=== PATIENT | female | born 1940 | race Caucasian/White ===

== ENCOUNTER → 2016-06-27 | Outpatient (CLI) | payer MEDICARE, BC ==
[2016-06-27 10:32] LABS: ABSOLUTE BASOPHILS # (AUTO) 0.1 10^3/uL (0.0-0.2); ABSOLUTE EOSINOPHILS # (AUTO) 0.7 10^3/uL (0.0-0.6); ABSOLUTE LYMPHOCYTES (AUTO) 2.9 10^3/uL (0.5-4.7); ABSOLUTE MONOCYTES (AUTO) 1.3 10^3/uL (0.1-1.4); ABSOLUTE NEUT (AUTO) 4.9 10^3/uL (1.7-8.2); BASOPHILS % (AUTO) 1.2 % (0-2); EOSINOPHILS % (AUTO) 6.7 % (0-6); HEMATOCRIT 29.9 % (36.0-47.0); HEMOGLOBIN 9.7 g/dL (12.0-15.5); HGB HCT DIFFERENCE -0.8; LYMPHOCYTES % (AUTO) 29.7 % (13-45); MEAN CORPUSCULAR HEMOGLOBIN 24.2 pg (27.0-33.4); MEAN CORPUSCULAR HGB CONC 32.6 g/dL (32.0-36.0); MEAN CORPUSCULAR VOLUME 74 fl (80-97); RED BLOOD COUNT 4.03 10^6/uL (3.72-5.28); RED CELL DISTRIBUTION WIDTH 16.6 % (11.5-14.0); SEGMENTED NEUTROPHILS % (AUTO) 49.4 % (42-78); WHITE BLOOD COUNT 9.8 10^3/uL (4.0-10.5)
[2016-06-27 10:52] LABS: ALANINE AMINOTRANSFERASE 49 U/L (9-52); ALBUMIN 4.2 g/dL (3.5-5.0); ALKALINE PHOSPHATASE 87 U/L (38-126); ANION GAP 16 (5-19); ASPARTATE AMINO TRANSFERASE 38 U/L (14-36); BILIRUBIN,DIRECT 0.2 mg/dL (0.0-0.4); BILIRUBIN,TOTAL 0.3 mg/dL (0.2-1.3); BLOOD UREA NITROGEN 20 mg/dL (7-20); CALCIUM 10.2 mg/dL (8.4-10.2); CARBON DIOXIDE 23 mmol/L (22-30); CHLORIDE 105 mmol/L (98-107); CHOLESTEROL 159.99 mg/dL (0-200); CREATININE RESULT 0.78 mg/dL (0.52-1.25); Direct HDL 62 mg/dL (>40); GLUCOSE 120 mg/dL (75-110); POTASSIUM 3.7 mmol/L (3.6-5.0); SODIUM 143.8 mmol/L (137-145); TOTAL PROTEIN 7.2 g/dL (6.3-8.2); TRIGLYCERIDES 137 mg/dL (<150)
[2016-06-27 11:04] LABS: DIRECT LDL 71 mg/dL (<100)
== END ==
LOC: OD 09:41
PROVIDERS: ATTEND Internal Medicine
DX: I10 Essential (primary) hypertension (principal); E78.5 Hyperlipidemia, unspecified; R53.82 Chronic fatigue, unspecified; R73.9 Hyperglycemia, unspecified; D64.9 Anemia, unspecified
CPT/HCPCS: 36415; 80053; 80061; 82728; 83036; 83525; 83540; 83550; 84443; 85025

== ENCOUNTER → 2016-12-27 | Outpatient (CLI) | payer MEDICARE, BC ==
--- NOTE | 2016-12-27 17:55 | XCELERA REPORT ---
[address] [address] Transthoracic Echocardiogram Report Name: ASIM CONTRERAS Age: 76 yrs Gender: Female : 1940 Patient Status: Outpatient Patient Location: Study Date: 12/27/2016 02:00 PM Height: 63 in Weight: 192 lb BSA: 1.9 m2 Procedure: A two-dimensional transthoracic echocardiogram with color flow and Doppler was performed. Poor doppler interogation. Reason For Study: MURMUR History: MURMUR. Ordering Physician: DOROTA SCHMIDT Performed By: Andrea Cotton Interpretation Summary The left ventricle is normal in size. There is normal left ventricular wall thickness. LV EF is > than 75% Left ventricular systolic function is normal. The left ventricular wall motion is normal. There is no thrombus. The left atrial size is normal. The right atrium is normal. There is no evidence of mitral valve prolapse. There is no mitral valve stenosis. There is a trace amount of mitral regurgitation There is no tricuspid stenosis. There is a trace amount of tricuspid regurgitation There is mild pulmonary hypertension by echo No AV jet velocity, but visually no .The increased AV jet velocity is due the LVEF > than 75%. There is no pericardial effusion. MMode/2D Measurements & Calculations RVDd: 2.5 cm LVIDd: 5.6 cm FS: 49.0 % Ao root diam: 3.2 cm IVSd: 1.0 cm LVIDs: 2.9 cm EDV(Teich): 154.9 ml LVPWd: 1.0 cm ESV(Teich): 31.4 ml Ao root area: 8.0 cm2 EF(Teich): 79.8 % Doppler Measurements & Calculations MV E max cherie: MV dec slope: Ao V2 max: LV V1 max P.3 cm/sec 241.4 cm/sec 13.0 mmHg MV A max cherie: 597.6 cm/sec2 Ao max PG: LV V1 max: 159.4 cm/sec MV dec time: 23.3 mmHg 180.4 cm/sec MV E/A: 0.88 0.23 sec PA V2 max: TR max cherie: 127.5 cm/sec 267.8 cm/sec PA max P.5 mmHgTR max P.7 mmHg Left Ventricle The left ventricle is normal in size. There is normal left ventricular wall thickness. LV EF is > than 75%. Left ventricular systolic function is normal. Doppler measurements suggest impaired left ventricular relaxation, which is associated with grade I/IV or mild diastolic dysfunction. The left ventricular wall motion is normal. There is no thrombus. Right Ventricle The right ventricle is normal in size and function. Atria The right atrium is normal. The left atrial size is normal. Mitral Valve There is no evidence of mitral valve prolapse. There is no vegetation seen on the mitral valve. There is no mitral valve stenosis. There is a trace amount of mitral regurgitation. Aortic Valve There is no aortic valvular vegetation. There is no aortic valve stenosis. There is trace LVOT obstruction. No AV jet velocity, but visually no .The increased AV jet velocity is due the LVEF > than 75%. No aortic regurgitation is present. Tricuspid Valve There is no tricuspid stenosis. There is a trace amount of tricuspid regurgitation. There is mild pulmonary hypertension by echo. RVSP is 399mm of Hg , with RA mean of 10. Pulmonic Valve There is no pulmonic valvular stenosis. There is no pulmonic valvular regurgitation. Great Vessels The aortic root is not well visualized but is probably normal size. Effusions There is no pericardial effusion. : DOROTA SCHMIDT > Aura Rivera
== END ==
LOC: SP 13:55
PROVIDERS: ATTEND Internal Medicine
DX: R01.1 Cardiac murmur, unspecified (principal)
CPT/HCPCS: 93306

== ENCOUNTER → 2017-01-22 | Outpatient (CLI) | payer MEDICARE, BC ==
[~2017-01-22] MED LIST: ALBUTEROL SULFATE 0.083% NEB 2.5 MG/3 ML AMPUL NEB ONE
--- NOTE | 2017-01-25 08:55 | PULMONARY FUNCTION TEST ---
DATE OF SERVICE: 01/22/2017 THE VITAL CAPACITY IS SLIGHTLY DECREASED. THE EXPIRATORY FLOW RATES ARE SLIGHTLY DECREASED. THE FEV1/VC IS 76%, PREDICTED: 82% LUNG VOLUMES BY NITROGEN WASH OUT METHOD SHOW: TLC IS 74% OF PREDICTED FRC IS 85% OF PREDICTED RV IS 64% OF PREDICTED THE DLCO IS 12.4, 59% OF PREDICTED. THE RV/TLC RATIO IS 36% PREDICTED 41% AFTER BRONCHODILATOR, EXPIRATORY FLOW RATES SHOW NO SIGNIFICANT CHANGE. IMPRESSION: GOOD PATIENT EFFORT. SLIGHT RESTRICTIVE DEFECT DIFFUSING CAPACITY IS MODERATELY DECREASED. CC: DOROTA SCHMIDT MD > OPAL
== END ==
LOC: RT 09:59
PROVIDERS: ATTEND Internal Medicine
DX: R06.00 Dyspnea, unspecified (principal); J45.909 Unspecified asthma, uncomplicated
CPT/HCPCS: 94729; 94727; 94060; A9270

== ENCOUNTER 2017-02-06 15:48 | Inpatient (IN) | payer MEDICARE, BC ==
[2017-02-06] MEDS ORDERED: NORMAL SALINE 1000 ML 1,000 ML IV PRN ×2 (16:31)
[2017-02-06] MEDS ORDERED: ACETAMINOPHEN 325 MG TABLET PO PRN (16:31)
[2017-02-06] MEDS ORDERED: CETIRIZINE 10 MG TABLET PO PRN (16:41)
[2017-02-06] MEDS ORDERED: ALBUTEROL SULFATE HFA (90 MCG/PUFF) 8 GM MDI (1 MDI/ER DISP) IH PRN (16:41)
--- NOTE | 2017-02-06 16:51 | PDOC H&P ---
History of Present Illness Admission Date/PCP: 02/06/17 15:48 DOROTA SCHMIDT, Patient complains of: Exertional dyspnea. Fatigue History of Present Illness: ASIM CONTRERAS is a 76 year old female Past Medical History Cardiac Medical History: Reports: Hypertension Denies: Myocardial Infarction Pulmonary Medical History: Reports: Asthma - INHALERS Neurological Medical History: Denies: Seizures Endocrine Medical History: Reports: Diabetes Mellitus Type 2 GI Medical History: Reports: Hiatal Hernia Denies: Hepatitis Musculoskeltal Medical History: Reports: Arthritis Hematology: Reports: Anemia Denies: Sickle Cell Disease Past Surgical History Past Surgical History: Denies: Amputation, Hysterectomy, Mastectomy, Pacemaker Social History Lives with: Family Smoking Status: Never Smoker Frequency of Alcohol Use: None Hx Recreational Drug Use: No Drugs: None Hx Prescription Drug Abuse: No Family History Family History: Reviewed & Not Pertinent Parental Family History Reviewed: Yes Children Family History Reviewed: Yes Sibling(s) Family History Reviewed.: Yes Medication/Allergy Home Medications: Acetaminophen [Tylenol Extra Strength 500 mg Tablet] 1 tab PO Q4 PRN 03/25/12 Albuterol Sulfate [Ventolin HFA] 1 puff IH Q4HP PRN 03/25/12 Aspirin [Ecotrin 81 mg EC Tablet] 81 mg PO DAILY 03/25/12 Cetirizine HCl [Zyrtec 10 mg Tablet] 10 mg PO 03/25/12 Diltiazem HCl 80 mg 03/25/12 Fluticasone/Salmeterol [Advair 100-50 Diskus 28 Dose] 1 inh IH DAILY 03/25/12 Glucosamine Sulfate Dipot Chlr [Glucosamine] 1,000 mg PO 03/25/12 Hydralazine HCl [Apresoline 25 Mg Tablet] 50 mg PO TID 03/25/12 Iron 18 mg PO 03/25/12 Lansoprazole [Prevacid] 30 mg PO 03/25/12 Levothyroxine Sodium [Synthroid 50 Mcg Tablet] 50 mcg PO DAILY 03/25/12 Metformin HCl [Glucophage XR 500 mg Tablet] 500 mg PO QPM 03/25/12 Montelukast Sodium [Singulair 10 mg Tablet] 10 mg PO 03/25/12 Pravastatin Sodium [Pravachol] 80 mg PO 03/25/12 Allergies/Adverse Reactions: codeine [Codeine] Allergy (Verified 03/25/12 11:44) Nausea Review of Systems All systems: as per H Physical Exam Vital Signs: Intake & Output 02/05/17 02/06/17 02/07/17 06:59 06:59 06:59 Weight 87 kg General appearance: PRESENT: mild distress Head exam: PRESENT: atraumatic Eye exam: PRESENT: conjunctiva pale Neck exam: ABSENT: carotid bruit, JVD Respiratory exam: PRESENT: rhonchi Cardiovascular exam: PRESENT: RRR, +S1, +S2 Pulses: PRESENT: +1 pedal pulses bilateral GI/Abdominal exam: PRESENT: soft Extremities exam: PRESENT: full ROM Musculoskeletal exam: PRESENT: ambulatory Neurological exam: PRESENT: alert, awake, oriented to person, oriented to place , oriented to time Assessment & Plan - Diagnosis (1) Exertional dyspnea Is this a current diagnosis for this admission?: Yes Plan: Most probably related to the anemia (2) Symptomatic anemia Is this a current diagnosis for this admission?: Yes Plan: We will transfuse 4 units of packed red blood cells Most probably related to GI bleed (3) Hypertension Is this a current diagnosis for this admission?: Yes Plan: Continue current medications (4) Asthma Is this a current diagnosis for this admission?: Yes Plan: Continue inhalers (5) Gastroesophageal reflux disease Is this a current diagnosis for this admission?: Yes Plan: Continue current treatment
[2017-02-06] MEDS ORDERED: FUROSEMIDE INJ/PF 40 MG/4 ML SDV IV PRN (17:00)
[2017-02-06] MEDS ORDERED: (PENDING PHARMACY ID) (Metformin Hcl [Glucophage Xr 500 Mg Tablet] 500 MG) PO SCH (18:00)
[2017-02-06] MEDS ORDERED: (PENDING PHARMACY ID) (Lansoprazole [Prevacid] 30 MG) PO SCH (18:00)
[2017-02-06] MEDS ORDERED: HYDRALAZINE HCL 25 MG TABLET PO SCH (18:00)
[2017-02-06] MEDS ORDERED: ALBUTEROL SULFATE HFA (90 MCG/PUFF) 200 PUFF/8.5 GM MDI IH PRN (19:22)
[2017-02-06] MEDS ORDERED: BISACODYL 5 MG TABEC PO ONE (21:00)
[2017-02-06] MEDS: ATORVASTATIN CALCIUM 20 MG TABLET PO SCH (21:13)
[2017-02-06] MEDS: HYDRALAZINE HCL 50 MG TABLET PO SCH (21:13)
[2017-02-06] MEDS: MONTELUKAST SODIUM 10 MG TABLET PO SCH (21:13)
[2017-02-06] MEDS ORDERED: DILTIAZEM HCL PO SCH (22:00)
[2017-02-07] MEDS: FLUTICASONE/SALMETEROL DISKUS 100-50 MCG/DOSE IH SCH ×3 (00:15→21:44)
[2017-02-07] MEDS: FUROSEMIDE INJ/PF 40 MG/4 ML SDV IV PRN ×2 (03:10→06:30)
[2017-02-07] MEDS: LANSOPRAZOLE 30 MG TAB.RAP.DR PO SCH (06:29)
[2017-02-07] MEDS: LEVOTHYROXINE SODIUM 0.05 MG TABLET PO SCH (06:29)
[2017-02-07] MEDS: HYDRALAZINE HCL 50 MG TABLET PO SCH ×3 (06:30→21:43)
[2017-02-07] MEDS ORDERED: PEG 3350/NA SULF,BICARB,CL/KCL 4000 ML PO ONE (08:00)
--- NOTE | 2017-02-07 08:36 | PDOC PROGRESS REPORT ---
Subjective Progress Note for:: 02/07/17 Subjective:: The patient still complains of feeling tired. She has only received 2 units of packed cells because 1 of the bags was leaking and needed to be discarded. She had significant amount of diureses because of Lasix. Discussed with the clinical pharmacy technician. Reason For Visit: SYMPTOMATIC ANEMIA,EXERTIONAL DYSPNEA,PROBABLE Physical Exam Vital Signs: Temp Pulse Resp BP Pulse Ox 97.8 F 78 22 H 157/58 H 99 02/07/17 07:22 02/07/17 07:22 02/07/17 07:22 02/07/17 07:22 02/07/17 07:22 Intake & Output 02/06/17 02/07/17 02/08/17 06:59 06:59 06:59 Intake Total 2088 50 Output Total 2300 Balance -212 50 Weight 86.8 kg General appearance: PRESENT: mild distress Head exam: PRESENT: atraumatic Eye exam: PRESENT: conjunctiva pale Neck exam: ABSENT: carotid bruit, JVD Respiratory exam: PRESENT: clear to auscultation cat Cardiovascular exam: PRESENT: RRR, +S1, +S2 Pulses: PRESENT: +1 pedal pulses bilateral GI/Abdominal exam: PRESENT: normal bowel sounds, soft Extremities exam: PRESENT: full ROM Musculoskeletal exam: PRESENT: ambulatory Neurological exam: PRESENT: alert, awake Results Laboratory Results: 02/06/17 18:30 Blood Type B POSITIVE Antibody Screen NEGATIVE Assessment & Plan - Diagnosis (1) Exertional dyspnea Is this a current diagnosis for this admission?: Yes Plan: We will continue with blood transfusions that should improve the dyspnea (2) Symptomatic anemia Is this a current diagnosis for this admission?: Yes Plan: Complete the 4 units of packed red blood cells (3) Hypertension Is this a current diagnosis for this admission?: Yes Plan: Continue current medications (4) Asthma Is this a current diagnosis for this admission?: Yes Plan: Continue inhalers (5) Gastroesophageal reflux disease Is this a current diagnosis for this admission?: Yes Plan: Continue current treatment
[2017-02-07] MEDS: METFORMIN HCL 500 MG TABLET PO SCH ×2 (09:46→19:23)
[2017-02-07] MEDS: CETIRIZINE 10 MG TABLET PO SCH (09:46)
[2017-02-07] MEDS ORDERED: FLUTICASONE/SALMETEROL DISKUS 100-50 MCG/DOSE IH SCH (10:00)
[2017-02-07] MEDS ORDERED: MIDAZOLAM 2 MG/2 ML INJ ONE (17:28)
[2017-02-07] MEDS ORDERED: NALOXONE HCL INJ/PF 0.4 MG/1 ML SDV ONE (17:28)
[2017-02-07] MEDS ORDERED: EPINEPHRINE INJ 1 MG/10 ML DISP.SYRIN ONE (17:29)
[2017-02-07] MEDS ORDERED: GLUCAGON,HUMAN RECOMB 1 MG INJ ONE (17:29)
[2017-02-07] MEDS ORDERED: FLUMAZENIL INJ 0.5 MG/5 ML VIAL ONE (17:29)
[2017-02-07] MEDS: FENTANYL CITRATE INJ/PF 100 MCG/2 ML AMPUL ONE ×2 (18:10→18:20)
[2017-02-07 18:19] LABS: ABSOLUTE BASOPHILS # (AUTO) 0.2 10^3/uL (0.0-0.2); ABSOLUTE EOSINOPHILS # (AUTO) 0.5 10^3/uL (0.0-0.6); ABSOLUTE LYMPHOCYTES (AUTO) 2.9 10^3/uL (0.5-4.7); ABSOLUTE NEUT (AUTO) 7.2 10^3/uL (1.7-8.2); BASOPHILS % (AUTO) 1.8 % (0-2); EOSINOPHILS % (AUTO) 3.7 % (0-6); HEMATOCRIT 34.3 % (36.0-47.0); HGB HCT DIFFERENCE -1.3; LYMPHOCYTES % (AUTO) 22.6 % (13-45); MEAN CORPUSCULAR HEMOGLOBIN 21.5 pg (27.0-33.4); MEAN CORPUSCULAR HGB CONC 32.1 g/dL (32.0-36.0); MONOCYTES % (AUTO) 15.5 % (3-13); RED BLOOD COUNT 5.11 10^6/uL (3.72-5.28); RED CELL DISTRIBUTION WIDTH 29.3 % (11.5-14.0); SEGMENTED NEUTROPHILS % (AUTO) 56.4 % (42-78); WHITE BLOOD COUNT 12.8 10^3/uL (4.0-10.5)
[2017-02-07 18:43] LABS: ALANINE AMINOTRANSFERASE 32 U/L (9-52); ALBUMIN 4.1 g/dL (3.5-5.0); ALKALINE PHOSPHATASE 98 U/L (38-126); ANION GAP 15 (5-19); ASPARTATE AMINO TRANSFERASE 33 U/L (14-36); BILIRUBIN,DIRECT 0.5 mg/dL (0.0-0.4); BILIRUBIN,TOTAL 0.9 mg/dL (0.2-1.3); BLOOD UREA NITROGEN 11 mg/dL (7-20); CALCIUM 8.7 mg/dL (8.4-10.2); CARBON DIOXIDE 28 mmol/L (22-30); CHLORIDE 102 mmol/L (98-107); CREATININE RESULT 0.66 mg/dL (0.52-1.25); GLUCOSE 97 mg/dL (75-110); POTASSIUM 3.4 mmol/L (3.6-5.0); SODIUM 145.4 mmol/L (137-145); TOTAL PROTEIN 7.2 g/dL (6.3-8.2)
--- NOTE | 2017-02-07 19:01 | PDOC CONSULTATION ---
Consultation Consult Date: 02/06/17 History of Present Illness Admission Date/PCP: 02/06/17 15:48 DOROTA SCHMIDT, History of Present Illness: This is a 76-year-old patient was admitted directly to the hospital on 2016 with dyspnea, fatigue, and anemia. Her admission hemoglobin was 5.9 with microcytosis. She denies any bright red blood per rectum or black stools. She had been taking iron supplements at home. She has no abdominal pain, nausea, or vomiting. I saw her earlier this year with iron deficiency anemia. Her ferritin was 14 at that time with a saturation of 18. Her hemoglobin was 9.7. She had an EGD and colonoscopy in July 2016 that showed a large hiatal hernia with Dheeraj erosions, polyps in the sigmoid and the cecum with hemorrhoids. I felt the Dheeraj erosions may be contributing to her anemia. She was initially started on lansoprazole twice a day for 2 months and has continued with 1 a day since. I also suggested capsule endoscopy of her small intestines but she declined Past Medical History Cardiac Medical History: Reports: Hypertension Denies: Myocardial Infarction Pulmonary Medical History: Reports: Asthma - INHALERS Neurological Medical History: Denies: Seizures Endocrine Medical History: Reports: Diabetes Mellitus Type 2 GI Medical History: Reports: Hiatal Hernia Denies: Hepatitis Musculoskeltal Medical History: Reports: Arthritis Hematology: Reports: Anemia Denies: Sickle Cell Disease Past Surgical History Past Surgical History: EGD and colonoscopy in July 2016 Past Surgical History: Denies: Amputation, Hysterectomy, Mastectomy, Pacemaker Social History Lives with: Family Smoking Status: Never Smoker Frequency of Alcohol Use: None Hx Recreational Drug Use: No Drugs: None Hx Prescription Drug Abuse: No - Advance Directive Resuscitation Status: Full Code Family History Family History: Reviewed & Not Pertinent Parental Family History Reviewed: No Children Family History Reviewed: NA Sibling(s) Family History Reviewed.: NA Medication/Allergy Home Medications: Albuterol Sulfate [Proair HFA] 2 puff IN Q4HP PRN 02/06/17 Aspirin [Ecotrin 81 mg EC Tablet] 81 mg PO DAILY 02/06/17 Cetirizine HCl [Zyrtec 10 mg Tablet] 10 mg PO DAILY 02/06/17 Diltiazem HCl [Dilacor Xr] 240 mg PO QAM 02/06/17 Ferrous Sulfate [Slow Release Iron] 45 mg PO DAILY 02/06/17 Fluticasone/Salmeterol [Advair 100-50 Diskus 28 Dose] 1 puff IN Q12 02/06/17 Glucosam/Chond-MSM 2/C/D3/Presley [Bdozhmwmvm-Pufbrtvfdcm-RVS Tab] 1 tab PO DAILY 02/06/17 Hydralazine HCl [Apresoline 50 mg Tablet] 50 mg PO Q8 02/06/17 Hydrochlorothiazide [Hydrodiuril 25 mg Tablet] 25 mg PO DAILY 02/06/17 Lansoprazole [Prevacid] 30 mg PO DAILY 02/06/17 Levothyroxine Sodium 50 mcg PO Q6AM 02/06/17 Metformin HCl [Metformin HCl ER] 500 mg PO DAILY 02/06/17 Montelukast Sodium [Singulair 10 mg Tablet] 10 mg PO DAILY 02/06/17 Multivitamin/Iron/Folic Acid [Centrum Adults Tablet] 1 tab PO DAILY 02/06/17 Naproxen 500 mg PO Q12HP PRN 02/06/17 Pravastatin Sodium [Pravachol] 80 mg PO DAILY 02/06/17 Allergies/Adverse Reactions: codeine [Codeine] Allergy (Verified 03/25/12 11:44) Nausea Review of Systems All systems: reviewed and no additional remarkable complaints except as stated Physical Exam Vital Signs: Temp Pulse Resp BP Pulse Ox 97.3 F 76 16 163/68 H 93 02/07/17 14:20 02/07/17 18:50 02/07/17 18:50 02/07/17 18:50 02/07/17 18:50 Intake & Output 02/06/17 02/07/17 02/08/17 06:59 06:59 06:59 Intake Total 2088 850 Output Total 2300 Balance -212 850 Weight 86.8 kg Exam: General: Patient is alert and looks well. HEENT: There is no pallor or jaundice. PERRLA. Oropharynx normal Respiratory: No chest deformity. No respiratory distress. Chest wall palpitation was unremarkable. Breath sounds were normal Cardiovascular: Heart sounds 1 and 2 normal with no murmurs. Abdominal: Not distended. Soft and nontender. Liver and spleen not palpable. No ascites demonstrated. Bowel sounds active. Rectal examination was deferred. Extremities: No edema Neurological: Alert and oriented x4. Grossly nonfocal. Normal speech Skin: No significant rash Psychological: Normal affect Results Laboratory Results: 02/07/17 18:08 02/06/17 02/07/17 18:30 18:08 Sodium 145.4 H Potassium 3.4 L Chloride 102 Carbon Dioxide 28 Anion Gap 15 BUN 11 Creatinine 0.66 Est GFR ( Amer) > 60 Est GFR (Non-Af Amer) > 60 Glucose 97 Calcium 8.7 Total Bilirubin 0.9 AST 33 ALT 32 Alkaline Phosphatase 98 Total Protein 7.2 Albumin 4.1 Blood Type B POSITIVE Antibody Screen NEGATIVE Assessment & Plan - Diagnosis (1) Iron deficiency anemia due to chronic blood loss Is this a current diagnosis for this admission?: Yes Plan: She has chronic recurrent iron deficiency anemia. The only findings from her last endoscopic evaluation in July of this year was the large hiatal hernia with the erosions within the hernia. She has been on a PPI since which makes it less likely to be a problem. She will undergo repeat EGD and colonoscopy and if unremarkable the capsule endoscopy of her small intestines as outpatient. We should follow her H&H every few months and transfuse as needed (2) Hiatal hernia with gastroesophageal reflux Is this a current diagnosis for this admission?: Yes (3) Gastric erosions Is this a current diagnosis for this admission?: Yes
--- NOTE | 2017-02-07 19:04 | Operative Report ---
Operative Report DATE OF SURGERY: 02/07/17 Operative Report: Pre-op diagnosis: Symptomatic anemia Post-op diagnosis: 1. 5 cm hiatal hernia 2. Sigmoid diverticulosis 3. Sigmoid polyp 4. Internal hemorrhoids Surgery: Upper endoscopy and Colonoscopy with polypectomy Medications: Versed 2mg, Fentanyl 100mcg IV push Tissue removed: Procedure: After informed consent obtained from patient, patient's pharynx was sprayed with Hurricane and conscious sedation was achieved. The upper endoscope was then inserted into the esophagus under direct vision and advanced into the stomach and further into the duodenum. Detailed examination of the duodenum, stomach and the esophagus was then performed. A digital rectal examination was performed and this was unremarkable. The colonoscope was inserted into the rectum and advanced to the cecum. The appendiceal orifice and the terminal ileum were both identified. The mucosa was examined into details as the colonoscope was slowly pulled out of the patient. The endoscope was retroflexed in the rectum. Patient tolerated the procedure well. Findings Esophagus: The Z line was at 32 cm with top of the gastric fold at 37 cm. Stomach: No significant erosions identified within and the mouth of the hernia Duodenum: Normal Terminal ileum: Normal Cecum: Normal Ascending colon: Normal Transverse colon: Normal Descending colon: Normal Sigmoid colon: 4 mm polyp removed with a cold snare. Few small diverticuli Rectum: Normal except for internal hemorrhoids Plan: Await pathology. Will schedule capsule endoscopy of the small intestines as outpatient OPERATION: .
[2017-02-07 19:13] LABS: MEAN CORPUSCULAR VOLUME 67 fl (80-97)
[2017-02-07 19:14] LABS: ANISOCYTOSIS 4+; MICROCYTOSIS 2+; OVALOCYTES SLIGHT; POIKILOCYTOSIS 1+; POLYCHROMASIA SLIGHT
[2017-02-07 19:15] LABS: BURR CELLS SLIGHT; TARGET CELLS 1+
[2017-02-07 19:16] LABS: TEAR DROP CELLS SLIGHT
[2017-02-07 19:18] LABS: HYPOCHROMASIA SLIGHT
[2017-02-07] MEDS: MONTELUKAST SODIUM 10 MG TABLET PO SCH (21:43)
[2017-02-07] MEDS: ATORVASTATIN CALCIUM 20 MG TABLET PO SCH (21:44)
[2017-02-08] MEDS: HYDRALAZINE HCL 50 MG TABLET PO SCH (05:16)
[2017-02-08] MEDS: LANSOPRAZOLE 30 MG TAB.RAP.DR PO SCH (05:17)
[2017-02-08] MEDS: LEVOTHYROXINE SODIUM 0.05 MG TABLET PO SCH (05:17)
[2017-02-08 07:12] LABS: ABSOLUTE BASOPHILS # (AUTO) 0.1 10^3/uL (0.0-0.2); ABSOLUTE EOSINOPHILS # (AUTO) 0.8 10^3/uL (0.0-0.6); ABSOLUTE LYMPHOCYTES (AUTO) 1.9 10^3/uL (0.5-4.7); ABSOLUTE MONOCYTES (AUTO) 1.9 10^3/uL (0.1-1.4); ABSOLUTE NEUT (AUTO) 7.7 10^3/uL (1.7-8.2); BASOPHILS % (AUTO) 0.7 % (0-2); EOSINOPHILS % (AUTO) 6.1 % (0-6); HEMATOCRIT 34.3 % (36.0-47.0); HEMOGLOBIN 10.7 g/dL (12.0-15.5); HGB HCT DIFFERENCE -2.2; LYMPHOCYTES % (AUTO) 15.5 % (13-45); MEAN CORPUSCULAR HEMOGLOBIN 20.9 pg (27.0-33.4); MEAN CORPUSCULAR HGB CONC 31.3 g/dL (32.0-36.0); MEAN CORPUSCULAR VOLUME 67 fl (80-97); MONOCYTES % (AUTO) 15.7 % (3-13); RED BLOOD COUNT 5.15 10^6/uL (3.72-5.28); RED CELL DISTRIBUTION WIDTH 29.2 % (11.5-14.0); WHITE BLOOD COUNT 12.4 10^3/uL (4.0-10.5)
--- NOTE | 2017-02-08 08:02 | PDOC DISCHARGE SUMMARY ---
General - Admit/Disc Date/PCP Admission Date/Primary Care Provider: 02/06/17 15:48 DOROTA SCHMIDT, Discharge Date: 02/08/17 - Discharge Diagnosis (1) Exertional dyspnea Is this a current diagnosis for this admission?: Yes Summary: Improved with blood transfusions (2) Symptomatic anemia Is this a current diagnosis for this admission?: Yes Summary: Resolved with blood transfusions of 4 units of packed red blood cells (3) Hypertension Is this a current diagnosis for this admission?: Yes Summary: Continue current medications (4) Asthma Is this a current diagnosis for this admission?: Yes Summary: Stable continue current medications (5) Gastroesophageal reflux disease Is this a current diagnosis for this admission?: Yes Summary: Continue current medications. Follow-up with the GI. Will probably need to obtain an endoscopy capsule for further evaluation for possible areas of GI bleed - Additional Information Resuscitation Status: Full Code Home Medications: Albuterol Sulfate [Proair HFA] 2 puff IN Q4HP PRN 02/06/17 Aspirin [Ecotrin 81 mg EC Tablet] 81 mg PO DAILY 02/06/17 Cetirizine HCl [Zyrtec 10 mg Tablet] 10 mg PO DAILY 02/06/17 Diltiazem HCl [Dilacor Xr] 240 mg PO QAM 02/06/17 Ferrous Sulfate [Slow Release Iron] 45 mg PO DAILY 02/06/17 Fluticasone/Salmeterol [Advair 100-50 Diskus 28 Dose] 1 puff IN Q12 02/06/17 Glucosam/Chond-MSM 2/C/D3/Presley [Dksilxxzez-Seqfcyhwzws-WSV Tab] 1 tab PO DAILY 02/06/17 Hydralazine HCl [Apresoline 50 mg Tablet] 50 mg PO Q8 02/06/17 Hydrochlorothiazide [Hydrodiuril 25 mg Tablet] 25 mg PO DAILY 02/06/17 Lansoprazole [Prevacid] 30 mg PO DAILY 02/06/17 Levothyroxine Sodium 50 mcg PO Q6AM 02/06/17 Metformin HCl [Metformin HCl ER] 500 mg PO DAILY 02/06/17 Montelukast Sodium [Singulair 10 mg Tablet] 10 mg PO DAILY 02/06/17 Multivitamin/Iron/Folic Acid [Centrum Adults Tablet] 1 tab PO DAILY 02/06/17 Naproxen 500 mg PO Q12HP PRN 02/06/17 Pravastatin Sodium [Pravachol] 80 mg PO DAILY 02/06/17 History of Present Illness History of Present Illness: ASIM CONTRERAS is a 76 year old female Hospital Course Hospital Course: The the patient was admitted with symptomatic anemia. She has received IV fluids and transfusion of 4 units of packed red blood cells. She underwent an upper endoscopy and colonoscopy. No massive areas of bleeding were noted. Case was discussed with GI who have made arrangements for the patient to have a endoscopy capsule as an outpatient to evaluate the small intestine Physical Exam Vital Signs: Temp Pulse Resp BP Pulse Ox 98.2 F 81 16 153/87 H 94 02/08/17 05:15 02/08/17 05:15 02/08/17 05:15 02/08/17 05:15 02/08/17 05:15 Intake & Output 02/07/17 02/08/17 02/09/17 06:59 06:59 06:59 Intake Total 2088 3370 Output Total 2300 2580 Balance -212 790 Weight 86.8 kg 86.4 kg General appearance: PRESENT: no acute distress Head exam: PRESENT: atraumatic Eye exam: PRESENT: conjunctiva pink Neck exam: PRESENT: full ROM. ABSENT: carotid bruit, JVD Respiratory exam: PRESENT: clear to auscultation cat Cardiovascular exam: PRESENT: RRR, +S1, +S2 Pulses: PRESENT: +1 pedal pulses bilateral GI/Abdominal exam: PRESENT: normal bowel sounds, soft Extremities exam: PRESENT: full ROM Musculoskeletal exam: PRESENT: ambulatory Neurological exam: PRESENT: alert, awake Results Laboratory Results: 02/08/17 06:39 02/07/17 18:08 02/06/17 02/07/17 02/07/17 18:30 18:08 18:08 WBC 12.8 H RBC 5.11 Hgb 11.0 L D Hct 34.3 L MCV 67 L D MCH 21.5 L MCHC 32.1 RDW 29.3 H Plt Count 417 Seg Neutrophils % 56.4 Lymphocytes % 22.6 Monocytes % 15.5 H Eosinophils % 3.7 Basophils % 1.8 Absolute Neutrophils 7.2 Absolute Lymphocytes 2.9 Absolute Monocytes 2.0 H Absolute Eosinophils 0.5 Absolute Basophils 0.2 Sodium 145.4 H Potassium 3.4 L Chloride 102 Carbon Dioxide 28 Anion Gap 15 BUN 11 Creatinine 0.66 Est GFR ( Amer) > 60 Est GFR (Non-Af Amer) > 60 Glucose 97 Calcium 8.7 Total Bilirubin 0.9 AST 33 ALT 32 Alkaline Phosphatase 98 Total Protein 7.2 Albumin 4.1 Blood Type B POSITIVE Antibody Screen NEGATIVE 02/08/17 06:39 WBC 12.4 H RBC 5.15 Hgb 10.7 L Hct 34.3 L MCV 67 L MCH 20.9 L MCHC 31.3 L RDW 29.2 H Plt Count 362 Seg Neutrophils % 62.0 Lymphocytes % 15.5 Monocytes % 15.7 H Eosinophils % 6.1 H Basophils % 0.7 Absolute Neutrophils 7.7 Absolute Lymphocytes 1.9 Absolute Monocytes 1.9 H Absolute Eosinophils 0.8 H Absolute Basophils 0.1 Sodium Potassium Chloride Carbon Dioxide Anion Gap BUN Creatinine Est GFR ( Amer) Est GFR (Non-Af Amer) Glucose Calcium Total Bilirubin AST ALT Alkaline Phosphatase Total Protein Albumin Blood Type Antibody Screen
[2017-02-08 08:06] LABS: ANISOCYTOSIS 4+; HYPOCHROMASIA 2+; MICROCYTOSIS 3+; POLYCHROMASIA 2+
[2017-02-08 08:58] VITALS: BP 153/87
[2017-02-08] MEDS: METFORMIN HCL 500 MG TABLET PO SCH (09:02)
[2017-02-08] MEDS: CETIRIZINE 10 MG TABLET PO SCH (09:02)
[2017-02-08] MEDS: FLUTICASONE/SALMETEROL DISKUS 100-50 MCG/DOSE IH SCH (09:02)
== END 2017-02-08 10:05 | disposition home or self-care (01) | DRG 812 ==
LOC: 4W 15:48
PROVIDERS: ADMIT Internal Medicine; ATTEND Internal Medicine
PROC: 0DBN8ZX Excision of Sigmoid Colon, Via Natural or Artificial Opening Endoscopic, Diagnostic (ICD-10-PCS; 2017-02-07)
PROC: 30233N1 Transfusion of Nonautologous Red Blood Cells into Peripheral Vein, Percutaneous Approach (ICD-10-PCS; principal; 2017-02-07 18:00)
PROC: 0DB68ZX Excision of Stomach, Via Natural or Artificial Opening Endoscopic, Diagnostic (ICD-10-PCS; 2017-02-07 18:00)
DX: D50.0 Iron deficiency anemia secondary to blood loss (chronic) (principal); I10 Essential (primary) hypertension; J45.909 Unspecified asthma, uncomplicated; K21.9 Gastro-esophageal reflux disease without esophagitis; E11.9 Type 2 diabetes mellitus without complications; M19.90 Unspecified osteoarthritis, unspecified site; K44.9 Diaphragmatic hernia without obstruction or gangrene; K25.9 Gastric ulcer, unspecified as acute or chronic, without hemorrhage or perforation; K57.30 Diverticulosis of large intestine without perforation or abscess without bleeding; D12.5 Benign neoplasm of sigmoid colon; K64.8 Other hemorrhoids; Z88.6 Allergy status to analgesic agent; Z79.82 Long term (current) use of aspirin; Z79.899 Other long term (current) drug therapy
CPT/HCPCS: 36415; 36430; 43235; 45385; 80053; 84443; 85025; 86850; 86900; 86901; 86920; 88305; J0171; J1610; J1940; J2250; J2310; J3010; J3490; J7030; P9016

== ENCOUNTER → 2017-02-06 | Outpatient (CLI) | payer MEDICARE, BC ==
[2017-02-06 13:52] LABS: HGB HCT DIFFERENCE -2.3; MEAN CORPUSCULAR HEMOGLOBIN 16.9 pg (27.0-33.4); MEAN CORPUSCULAR HGB CONC 29.7 g/dL (32.0-36.0); RED CELL DISTRIBUTION WIDTH 21.1 % (11.5-14.0); WHITE BLOOD COUNT 13.3 10^3/uL (4.0-10.5)
[2017-02-06 14:01] LABS: HEMOGLOBIN 5.9 g/dL (12.0-15.5); MEAN CORPUSCULAR VOLUME 57 fl (80-97)
[2017-02-06 14:15] LABS: ALANINE AMINOTRANSFERASE 32 U/L (9-52); ALKALINE PHOSPHATASE 91 U/L (38-126); ANION GAP 14 (5-19); ANISOCYTOSIS 3+; ASPARTATE AMINO TRANSFERASE 26 U/L (14-36); BASOPHILS % (MANUAL) 0 % (0-2); BILIRUBIN,DIRECT 0.3 mg/dL (0.0-0.4); BILIRUBIN,TOTAL 0.3 mg/dL (0.2-1.3); BLOOD UREA NITROGEN 19 mg/dL (7-20); CALCIUM 9.6 mg/dL (8.4-10.2); CARBON DIOXIDE 24 mmol/L (22-30); CHLORIDE 107 mmol/L (98-107); CREATININE RESULT 0.83 mg/dL (0.52-1.25); EOSINOPHILS % (MANUAL) 4 % (0-6); GLUCOSE 88 mg/dL (75-110); HYPOCHROMASIA 2+; LYMPHOCYTES % (MANUAL) 29 % (13-45); MICROCYTOSIS 4+; OVALOCYTES 1+; POIKILOCYTOSIS 1+; POLYCHROMASIA 1+; POTASSIUM 3.7 mmol/L (3.6-5.0); ROULEAUX SLIGHT; SODIUM 145.4 mmol/L (137-145); TEAR DROP CELLS SLIGHT; TOTAL CELLS COUNTED 100; TOTAL PROTEIN 6.9 g/dL (6.3-8.2)
[2017-02-07 15:13] LABS: PATH REVIEW PATHOLOGIST REVIEWED
== END ==
LOC: OD 12:25
PROVIDERS: ATTEND Internal Medicine
DX: I10 Essential (primary) hypertension (principal); E78.5 Hyperlipidemia, unspecified; D50.9 Iron deficiency anemia, unspecified; R53.82 Chronic fatigue, unspecified
CPT/HCPCS: 36415; 80053; 84443; 85025

== ENCOUNTER → 2017-02-26 | Outpatient (CLI) | payer MEDICARE, BC ==
[2017-02-26 10:22] LABS: ABSOLUTE BASOPHILS # (AUTO) 0.1 10^3/uL (0.0-0.2); ABSOLUTE EOSINOPHILS # (AUTO) 0.7 10^3/uL (0.0-0.6); ABSOLUTE LYMPHOCYTES (AUTO) 2.9 10^3/uL (0.5-4.7); ABSOLUTE MONOCYTES (AUTO) 1.4 10^3/uL (0.1-1.4); ABSOLUTE NEUT (AUTO) 4.5 10^3/uL (1.7-8.2); BASOPHILS % (AUTO) 1.5 % (0-2); EOSINOPHILS % (AUTO) 7.7 % (0-6); HEMATOCRIT 34.4 % (36.0-47.0); HEMOGLOBIN 11.1 g/dL (12.0-15.5); HGB HCT DIFFERENCE -1.1; LYMPHOCYTES % (AUTO) 29.7 % (13-45); MEAN CORPUSCULAR HEMOGLOBIN 22.2 pg (27.0-33.4); MEAN CORPUSCULAR HGB CONC 32.2 g/dL (32.0-36.0); MEAN CORPUSCULAR VOLUME 69 fl (80-97); MONOCYTES % (AUTO) 14.5 % (3-13); RED BLOOD COUNT 4.99 10^6/uL (3.72-5.28); RED CELL DISTRIBUTION WIDTH 31.2 % (11.5-14.0); SEGMENTED NEUTROPHILS % (AUTO) 46.6 % (42-78); WHITE BLOOD COUNT 9.7 10^3/uL (4.0-10.5)
[2017-02-26 10:46] LABS: ANISOCYTOSIS 4+; HYPOCHROMASIA 1+; MICROCYTOSIS 2+; TARGET CELLS SLIGHT
== END ==
LOC: OD 09:52
PROVIDERS: ATTEND Internal Medicine
DX: D64.9 Anemia, unspecified (principal)
CPT/HCPCS: 36415; 85025

== ENCOUNTER → 2018-05-14 | Outpatient (CLI) | payer MEDICARE, BC | LOC: OD 09:29 | PROVIDERS: ATTEND Otolaryngology | DX: J30.9 Allergic rhinitis, unspecified (principal) | CPT/HCPCS: 36415; 82785; 86003 ==

== ENCOUNTER → 2018-09-09 | Outpatient (CLI) | payer MEDICARE, BC ==
[2018-09-09 17:08] LABS: ABSOLUTE BASOPHILS # (AUTO) 0.1 10^3/uL (0.0-0.2); ABSOLUTE EOSINOPHILS # (AUTO) 0.2 10^3/uL (0.0-0.6); ABSOLUTE NEUT (AUTO) 11.1 10^3/uL (1.7-8.2); BASOPHILS % (AUTO) 0.5 % (0-2); EOSINOPHILS % (AUTO) 1.2 % (0-6); HEMATOCRIT 36.3 % (36.0-47.0); HEMOGLOBIN 12.2 g/dL (12.0-15.5); LYMPHOCYTES % (AUTO) 13.2 % (13-45); MEAN CORPUSCULAR HGB CONC 33.6 g/dL (32.0-36.0); MEAN CORPUSCULAR VOLUME 78 fl (80-97); MONOCYTES % (AUTO) 13.2 % (3-13); PLATELET COUNT 344 10^3/uL (150-450); RED BLOOD COUNT 4.68 10^6/uL (3.72-5.28); RED CELL DISTRIBUTION WIDTH 17.2 % (11.5-14.0); SEGMENTED NEUTROPHILS % (AUTO) 71.9 % (42-78); TOTAL CELLS COUNTED % (AUTO) 100 %; WHITE BLOOD COUNT 15.5 10^3/uL (4.0-10.5)
[2018-09-09 17:26] LABS: ALANINE AMINOTRANSFERASE 27 U/L (9-52); ALBUMIN 4.3 g/dL (3.5-5.0); ALKALINE PHOSPHATASE 95 U/L (38-126); ASPARTATE AMINO TRANSFERASE 24 U/L (14-36); BILIRUBIN,DIRECT 0.4 mg/dL (0.0-0.4); BILIRUBIN,TOTAL 0.4 mg/dL (0.2-1.3); TOTAL PROTEIN 7.3 g/dL (6.3-8.2)
== END ==
LOC: OD 16:26
PROVIDERS: ATTEND Internal Medicine Gastroenterology
DX: R10.32 Left lower quadrant pain (principal)
CPT/HCPCS: 36415; 80076; 85025

== ENCOUNTER → 2019-02-27 | Outpatient (CLI) | payer MEDICARE, BC ==
[2019-02-27 11:00] LABS: ABSOLUTE BASOPHILS # (AUTO) 0.1 10^3/uL (0.0-0.2); ABSOLUTE EOSINOPHILS # (AUTO) 0.7 10^3/uL (0.0-0.6); ABSOLUTE LYMPHOCYTES (AUTO) 2.4 10^3/uL (0.5-4.7); ABSOLUTE MONOCYTES (AUTO) 1.2 10^3/uL (0.1-1.4); ABSOLUTE NEUT (AUTO) 5.2 10^3/uL (1.7-8.2); BASOPHILS % (AUTO) 1.2 % (0-2); EOSINOPHILS % (AUTO) 7.6 % (0-6); HEMATOCRIT 36.4 % (36.0-47.0); HEMOGLOBIN 12.2 g/dL (12.0-15.5); LYMPHOCYTES % (AUTO) 25.3 % (13-45); MEAN CORPUSCULAR HEMOGLOBIN 26.9 pg (27.0-33.4); MEAN CORPUSCULAR HGB CONC 33.6 g/dL (32.0-36.0); MEAN CORPUSCULAR VOLUME 80 fl (80-97); MONOCYTES % (AUTO) 12.1 % (3-13); PLATELET COUNT 296 10^3/uL (150-450); RED BLOOD COUNT 4.54 10^6/uL (3.72-5.28); RED CELL DISTRIBUTION WIDTH 14.8 % (11.5-14.0); SEGMENTED NEUTROPHILS % (AUTO) 53.8 % (42-78); TOTAL CELLS COUNTED % (AUTO) 100 %; WHITE BLOOD COUNT 9.6 10^3/uL (4.0-10.5)
[2019-02-27 11:20] LABS: ALBUMIN 4.4 g/dL (3.5-5.0); ALKALINE PHOSPHATASE 81 U/L (38-126); ANION GAP 12 (5-19); ASPARTATE AMINO TRANSFERASE 34 U/L (14-36); BILIRUBIN,DIRECT 0.3 mg/dL (0.0-0.4); BILIRUBIN,TOTAL 0.4 mg/dL (0.2-1.3); BLOOD UREA NITROGEN 14 mg/dL (7-20); CALCIUM 10.1 mg/dL (8.4-10.2); CARBON DIOXIDE 28 mmol/L (22-30); CHLORIDE 102 mmol/L (98-107); CHOLESTEROL 178.81 mg/dL (0-200); GLUCOSE 96 mg/dL (75-110); POTASSIUM 3.9 mmol/L (3.6-5.0); TOTAL PROTEIN 7.9 g/dL (6.3-8.2); TRIGLYCERIDES 252 mg/dL (<150)
[2019-02-27 11:32] LABS: DIRECT LDL 96 mg/dL (<100)
[2019-02-27 11:35] LABS: VLDL CHOLESTEROL 50.4 mg/dL (10-31)
== END ==
LOC: OD 09:33
PROVIDERS: ATTEND Internal Medicine
DX: I10 Essential (primary) hypertension (principal); E78.5 Hyperlipidemia, unspecified; R53.83 Other fatigue; R73.9 Hyperglycemia, unspecified
CPT/HCPCS: 36415; 80053; 80061; 83036; 84443; 85025

== ENCOUNTER → 2019-12-11 | Outpatient (CLI) | payer MEDICARE, BC ==
[2019-12-11 11:20] LABS: ABSOLUTE BASOPHILS # (AUTO) 0.1 10^3/uL (0.0-0.2); ABSOLUTE EOSINOPHILS # (AUTO) 0.4 10^3/uL (0.0-0.6); ABSOLUTE LYMPHOCYTES (AUTO) 2.3 10^3/uL (0.5-4.7); ABSOLUTE MONOCYTES (AUTO) 1.3 10^3/uL (0.1-1.4); ABSOLUTE NEUT (AUTO) 5.3 10^3/uL (1.7-8.2); EOSINOPHILS % (AUTO) 4.7 % (0-6); HEMATOCRIT 35.2 % (36.0-47.0); HEMOGLOBIN 11.8 g/dL (12.0-15.5); MEAN CORPUSCULAR HEMOGLOBIN 26.4 pg (27.0-33.4); MEAN CORPUSCULAR HGB CONC 33.6 g/dL (32.0-36.0); MEAN CORPUSCULAR VOLUME 79 fl (80-97); MONOCYTES % (AUTO) 14.3 % (3-13); PLATELET COUNT 298 10^3/uL (150-450); RED BLOOD COUNT 4.49 10^6/uL (3.72-5.28); TOTAL CELLS COUNTED % (AUTO) 100 %; WHITE BLOOD COUNT 9.4 10^3/uL (4.0-10.5)
[2019-12-11 11:47] LABS: ALBUMIN 4.6 g/dL (3.5-5.0); ALKALINE PHOSPHATASE 84 U/L (38-126); ANION GAP 14 (5-19); ASPARTATE AMINO TRANSFERASE 45 U/L (14-36); BILIRUBIN,DIRECT 0.4 mg/dL (0.0-0.4); BILIRUBIN,TOTAL 0.4 mg/dL (0.2-1.3); BLOOD UREA NITROGEN 15 mg/dL (7-20); CALCIUM 10.5 mg/dL (8.4-10.2); CARBON DIOXIDE 29 mmol/L (22-30); CHLORIDE 101 mmol/L (98-107); CHOLESTEROL 146.88 mg/dL (0-200); GLUCOSE 113 mg/dL (75-110); POTASSIUM 4.3 mmol/L (3.6-5.0); TRIGLYCERIDES 225 mg/dL (<150)
[2019-12-11 11:59] LABS: DIRECT LDL 57 mg/dL (<100)
== END ==
LOC: OD 09:56
PROVIDERS: ATTEND Internal Medicine
DX: I10 Essential (primary) hypertension (principal); E78.5 Hyperlipidemia, unspecified; E16.2 Hypoglycemia, unspecified; R53.83 Other fatigue
CPT/HCPCS: 36415; 80053; 80061; 83036; 84443; 85025

== ENCOUNTER → 2019-12-16 | Outpatient (CLI) | payer MEDICARE, BC | LOC: OD 11:42 | PROVIDERS: ATTEND Internal Medicine | DX: E83.52 Hypercalcemia (principal) | CPT/HCPCS: 36415; 83970 ==

== ENCOUNTER → 2019-12-22 | Outpatient (CLI) | payer MEDICARE, BC ==
--- NOTE | 2019-12-22 14:26 | RADIOLOGY REPORT (SQ) ---
EXAM DESCRIPTION: NM PARATHYROID IMAGING IMAGES COMPLETED DATE/TIME: 12/22/2019 1:57 pm REASON FOR STUDY: E21.3 HYPERPARATHYROIDISM, UNSPECIFIED E21.3 HYPERPARATHYROIDISM, UNSPECIFIED COMPARISON: None. RADIONUCLIDE AND DOSE: 21.4 millicuries Tc-99m Sestamibi. The route of agent administration: Intravenous ADDITIONAL DRUGS AND DOSES: None. TECHNIQUE: Early and delayed images of the neck acquired following radionuclide administration. LIMITATIONS: None. FINDINGS: Thyroid: Normal size. Homogeneous activity. Normal washout. No focal lesions. Parathyroid: No retained activity in the thyroid or elsewhere in the neck to indicate a parathyroid a denoma. Other: No other significant findings. IMPRESSION: NORMAL STUDY. NO EVIDENCE OF PARATHYROID ADENOMA. TECHNICAL DOCUMENTATION: JOB ID: [id number] 2010 [employer]- All Rights Reserved Reading location - IP/workstation name: [email or web address]
== END ==
LOC: RAD 09:50
PROVIDERS: ATTEND Internal Medicine
DX: E21.3 Hyperparathyroidism, unspecified (principal)
CPT/HCPCS: 78070; A9500; Q9969